=== PATIENT | female | born 2000 | race Two or more races ===

== ENCOUNTER 2022-05-16 11:43 | Emergency (ER) | payer OTHER ==
[~2022-05-16] VITALS: Ht 165.1 cm; Wt 61.2 kg
[2022-05-16] MEDS ORDERED: HYDR-500 PO (13:13)
[2022-05-16] MEDS ORDERED: HYDR25CA PO (13:14)
[2022-05-16 14:00] VITALS: BP 129/76
--- NOTE | 2022-05-16 14:00 | NUR ---
Patient discharged to home in stable condition. Written and verbal after care instructions given. Patient verbalizes understanding of instruction.
== END 2022-05-16 14:01 | disposition home or self-care (01) ==
LOC: ER 11:54
DX: G47.00 Insomnia, unspecified (principal); F30.11 Manic episode without psychotic symptoms, mild; Z79.899 Other long term (current) drug therapy